=== PATIENT | male | born 1965 | race Caucasian/White ===

== ENCOUNTER 2019-12-11 16:20 | Inpatient (IN) | payer OTHER ==
[~2019-12-11] VITALS: Ht 167.6 cm; Wt 75.8 kg
[2019-12-11 18:30] LABS: HEMATOCRIT. 36.2 % (42.0-52.0); HEMOGLOBIN. 12.3 g/dL (14.0-18.0); MEAN CORPUSCULAR HEMOGLOBIN 33.4 pg (28.0-32.0); MEAN CORPUSCULAR VOLUME 98.5 fL (80.0-94.0); PLATELET 110 x1000/uL (130-400); RED BLOOD CELL COUNT 3.67 mill/uL (4.7-6.1); RED CELL DISTRIBUTION WIDTH 15.5 % (11.6-14.6)
[2019-12-11 18:42] LABS: CHLORIDE 95 mEq/L (98-107)
[2019-12-11 19:13] LABS: PLATELET ESTIMATE DECREASED
[2019-12-11] MEDS ORDERED: SODIUM POLYSTYRENE SULFONATE 15 G/60 ML BOT PO ONE (19:15)
[2019-12-11] MEDS ORDERED: DEXTROSE 50% WATER 50ML SYRINGE IV ONE ×4 (19:15→22:45)
[2019-12-11] MEDS ORDERED: INSULIN REGULAR (HUMULIN R) 300UNITS/3ML IV ONE (19:15)
[2019-12-11] MEDS ORDERED: DIPHENHYDRAMINE 50MG/ML VIAL IV PRN (21:45)
[2019-12-11] MEDS ORDERED: CLONIDINE 0.1MG TABLET PO PRN (21:45)
[2019-12-11] MEDS ORDERED: DOCUSATE SODIUM 100MG CAPSULE PO PRN (21:45)
[2019-12-11] MEDS ORDERED: AZITHROMYCIN 500 MG in DEXT 5% WATER 250 ML IV NR (22:00)
[2019-12-12 05:20] LABS: HEMATOCRIT. 34.7 % (42.0-52.0); HEMOGLOBIN. 11.7 g/dL (14.0-18.0); MEAN CORPUSCULAR HEMOGLOBIN 33.3 pg (28.0-32.0); MEAN CORPUSCULAR VOLUME 98.6 fL (80.0-94.0); MEAN PLATELET VOLUME 10.8 fl (7.4-10.4); PLATELET 84 x1000/uL (130-400); RED BLOOD CELL COUNT 3.52 mill/uL (4.7-6.1); RED CELL DISTRIBUTION WIDTH 15.8 % (11.6-14.6)
[2019-12-12 05:22] LABS: CHLORIDE 96 mEq/L (98-107)
[2019-12-12 05:49] LABS: PLATELET ESTIMATE NORMAL
[2019-12-12] MEDS: ACETAMINOPHEN 325MG TABLET PO PRN (06:09)
[2019-12-12] MEDS: ONDANSETRON HCL 4MG/2ML INJ IV PRN ×2 (06:29→21:33)
[2019-12-12 10:45] VITALS: BP 108/62
[2019-12-12 11:00] VITALS: BP 108/62
[2019-12-12] MEDS ORDERED: DEXTROSE 50% WATER 50ML SYRINGE IV PRN (11:15)
[2019-12-12 12:00] VITALS: BP 114/72
[2019-12-12] MEDS: BLOOD SUGAR DIAGNOSTIC STRIP TEST SCH ×3 (12:07→21:00)
[2019-12-12] MEDS: AZITHROMYCIN 500 MG in DEXT 5% WATER 250 ML IV SCH ×2 (12:09→12:33)
[2019-12-12] MEDS: INSULIN LISPRO 100 UNITS/ML SUBCUT SCH ×3 (12:10→21:00)
[2019-12-12] MEDS ORDERED: VANCOMYCIN 2,000 MG in DEXT 5% WATER 500 ML IV NR (13:00)
[2019-12-12 16:00] VITALS: BP 114/72
[2019-12-12 20:00] VITALS: BP 132/78
[2019-12-12] MEDS: PIPERACILLIN/TAZOBACTAM 2.25 G in DEXTROSE 5% WATER 50 ML IV SCH (21:35)
[2019-12-12] MEDS ORDERED: PIPERACILLIN/TAZOBACTAM 3.375 G/VIAL IV SCH (22:00)
[2019-12-13] VITALS: BP 154/61
[2019-12-13] MEDS: MAGNESIUM/ALUMINUM HYDROXIDE/SIMETHICONE 30ML UDC PO PRN ×2 (00:15→23:01)
[2019-12-13] MEDS: HYDROCODONE/ACETAMINOPHEN 5/325MG TABLET PO PRN ×2 (02:11→08:50)
[2019-12-13] MEDS: LINEZOLID 600 MG PREMIX 300 ML IV SCH ×2 (02:23→14:34)
[2019-12-13 04:00] VITALS: BP 104/70
[2019-12-13] MEDS: PIPERACILLIN/TAZOBACTAM 2.25 G in DEXTROSE 5% WATER 50 ML IV SCH ×2 (06:17→17:02)
[2019-12-13] MEDS: BLOOD SUGAR DIAGNOSTIC STRIP TEST SCH ×4 (07:20→20:03)
[2019-12-13] MEDS: INSULIN LISPRO 100 UNITS/ML SUBCUT SCH ×4 (07:50→20:02)
[2019-12-13] MEDS ORDERED: AZITHROMYCIN 250 MG in DEXT 5% WATER 250 ML IV SCH (09:00)
[2019-12-13] MEDS ORDERED: CALCIUM CARBONATE 500MG TABLET CHEW PO PRN (09:45)
[2019-12-13 10:10] LABS: HEMATOCRIT. 31.6 % (42.0-52.0); HEMOGLOBIN. 10.7 g/dL (14.0-18.0); MEAN CORPUSCULAR HEMOGLOBIN 33.2 pg (28.0-32.0); MEAN CORPUSCULAR VOLUME 97.8 fL (80.0-94.0); MEAN PLATELET VOLUME 11.7 fl (7.4-10.4); PLATELET 73 x1000/uL (130-400); RED BLOOD CELL COUNT 3.23 mill/uL (4.7-6.1); RED CELL DISTRIBUTION WIDTH 15.9 % (11.6-14.6)
[2019-12-13 10:28] LABS: BG BASE EXCESS -1.8 mmol/L (-2.0-2.0); BG CARBOXYHEMOGLOBIN 0.6 % (0.5-1.5); BG DEOXYHEMOGLOBIN 4.4 % (0.0-5.0); BG FRACTION INSPIRED OXYGEN 21; BG HCO3 ACT 23.1 mmol/L (22.0-26.0); BG METHEMOGLOBIN 0.3 % (0.0-1.5); BG OXYGEN SATURATION 95.6 % (92.0-98.5); BG OXYHEMOGLOBIN 94.7 % (94.0-97.0); BG PCO2 39.8 mmHg (35.0-45.0); BG PH 7.381 (7.350-7.450); BG PO2 86.4 mmHg (75.0-100.0); BG SAMPLE SITE LEFT RADIAL; BG TOTAL HEMOGLOBIN 10.4 g/dL (12.0-18.0); BG VENT MODE ROOM AIR
[2019-12-13 11:49] LABS: PLATELET ESTIMATE DECREASED
[2019-12-13 12:00] VITALS: BP 97/64
[2019-12-13 16:00] VITALS: BP 112/65
[2019-12-13 20:13] VITALS: BP 111/71
[2019-12-13 23:58] VITALS: BP 124/76
[2019-12-14] MEDS: ACETAMINOPHEN 325MG TABLET PO PRN (03:46)
[2019-12-14] MEDS: BLOOD SUGAR DIAGNOSTIC STRIP TEST SCH ×4 (06:51→21:33)
[2019-12-14] MEDS: INSULIN LISPRO 100 UNITS/ML SUBCUT SCH ×4 (06:51→20:59)
[2019-12-14 08:00] VITALS: BP 104/59
[2019-12-14 12:00] VITALS: BP 110/68
[2019-12-14] MEDS ORDERED: VANCOMYCIN 1 G PREMIX 200 ML IV NR (12:00)
[2019-12-14 13:52] LABS: HEMATOCRIT. 29.6 % (42.0-52.0); HEMOGLOBIN. 10.1 g/dL (14.0-18.0); MEAN CORPUSCULAR HEMOGLOBIN 33.1 pg (28.0-32.0); MEAN CORPUSCULAR VOLUME 97.5 fL (80.0-94.0); MEAN PLATELET VOLUME 11.3 fl (7.4-10.4); PLATELET 74 x1000/uL (130-400); RED BLOOD CELL COUNT 3.04 mill/uL (4.7-6.1); RED CELL DISTRIBUTION WIDTH 15.7 % (11.6-14.6)
[2019-12-14 13:58] LABS: CHLORIDE 101 mEq/L (98-107)
[2019-12-14 14:35] LABS: NUCLEATED RED BLOOD CELLS 1 /100 WBC
[2019-12-14 14:36] LABS: PLATELET ESTIMATE DECREASED
[2019-12-14] MEDS ORDERED: IPRATROPIUM/ALBUTEROL 0.5-3(2.5)MG/3ML NEB HHN PRN (15:15)
[2019-12-14 16:00] VITALS: BP 115/72
[2019-12-14] MEDS: CEFAZOLIN 2,000 MG in DEXT 5% WATER 100 ML IV SCH (18:36)
[2019-12-14 20:00] VITALS: BP 150/92
[2019-12-14] MEDS ORDERED: ENOXAPARIN 30MG/0.3ML SYR SUBCUT SCH (21:00)
[2019-12-14 22:38] VITALS: BP 150/92
[2019-12-15] VITALS: BP 139/77
[2019-12-15 04:00] VITALS: BP 134/72
[2019-12-15] MEDS: BLOOD SUGAR DIAGNOSTIC STRIP TEST SCH ×5 (05:50→20:51)
[2019-12-15 07:44] VITALS: BP 140/84
[2019-12-15] MEDS: INSULIN LISPRO 100 UNITS/ML SUBCUT SCH ×4 (07:50→20:52)
[2019-12-15] MEDS ORDERED: ENOXAPARIN 30MG/0.3ML SYR SUBCUT SCH (09:00)
[2019-12-15 11:44] VITALS: BP 128/78
[2019-12-15 15:40] VITALS: BP 127/78
[2019-12-15] MEDS: CEFAZOLIN 2,000 MG in DEXT 5% WATER 100 ML IV SCH (16:13)
[2019-12-15] MEDS ORDERED: SIMETHICONE 80MG TABLET CHEW PO PRN (19:45)
[2019-12-15] MEDS ORDERED: LACTULOSE 20G/30ML UDC PO PRN (21:15)
[2019-12-16] MEDS ORDERED: DOCUSATE SODIUM 100MG CAPSULE PO SCH (09:00)
== END 2019-12-15 22:30 | disposition left against medical advice (07) | DRG 720 ==
LOC: ER 16:20 → EDBD 20:44 → 7EST 20:44 → EDBEDREQSVC 20:46 → EDBEDREQTM 20:46 → EDBEDREQ 20:46 → EDBEDREQTM 12-12 01:25 → EDBEDREQSVC 12-12 01:25 → EDBEDREQDT 12-12 01:25 → EDBEDREQ 12-12 07:57 → ENRESERV 12-12 08:15 → 6WST 12-12 23:44
PROVIDERS: ADMIT Hospitalist; ATTEND Hospitalist
PROC: 5A1D70Z Performance of Urinary Filtration, Intermittent, Less than 6 Hours Per Day (ICD-10-PCS; principal; 2019-12-10)
PROC: 5A1D70Z Performance of Urinary Filtration, Intermittent, Less than 6 Hours Per Day (ICD-10-PCS; 2019-12-11)
PROC: 5A1D70Z Performance of Urinary Filtration, Intermittent, Less than 6 Hours Per Day (ICD-10-PCS; 2019-12-12)
PROC: 5A1D70Z Performance of Urinary Filtration, Intermittent, Less than 6 Hours Per Day (ICD-10-PCS; 2019-12-15)
DX: A41.01 Sepsis due to Methicillin susceptible Staphylococcus aureus (principal); J96.00 Acute respiratory failure, unspecified whether with hypoxia or hypercapnia; E43 Unspecified severe protein-calorie malnutrition; I13.2 Hypertensive heart and chronic kidney disease with heart failure and with stage 5 chronic kidney disease, or end stage renal disease; D61.818 Other pancytopenia; E11.22 Type 2 diabetes mellitus with diabetic chronic kidney disease; N18.6 End stage renal disease; E87.1 Hypo-osmolality and hyponatremia; I50.33 Acute on chronic diastolic (congestive) heart failure; B96.89 Other specified bacterial agents as the cause of diseases classified elsewhere; E87.5 Hyperkalemia; K59.00 Constipation, unspecified; R74.0 Nonspecific elevation of levels of transaminase and lactic acid dehydrogenase [LDH]; D64.9 Anemia, unspecified; Z53.29 Procedure and treatment not carried out because of patient's decision for other reasons; Z99.2 Dependence on renal dialysis; Z79.899 Other long term (current) drug therapy; Z68.27 Body mass index [BMI] 27.0-27.9, adult; Z03.818 Encounter for observation for suspected exposure to other biological agents ruled out
CPT/HCPCS: 36415; 36600; 71045; 73200; 80048; 80053; 80202; 82375; 82805; 82962; 83036; 83605; 84484; 85025; 87635; 93005; 99291; J0456; J0690; J1200; J1815; J2020; J2405; J2543; J3370; J7060; U0002

== ENCOUNTER 2020-01-03 20:34 | Inpatient (IN) | payer MEDICAID ==
[~2020-01-03] VITALS: Ht 180.3 cm; Wt 90.3 kg
[2020-01-03 23:00] LABS: HEMATOCRIT. 30.2 % (42.0-52.0); HEMOGLOBIN. 10.2 g/dL (14.0-18.0); MEAN CORPUSCULAR HEMOGLOBIN 33.2 pg (28.0-32.0); MEAN CORPUSCULAR VOLUME 97.9 fL (80.0-94.0); MEAN PLATELET VOLUME 9.2 fl (7.4-10.4); PLATELET 177 x1000/uL (130-400); RED BLOOD CELL COUNT 3.08 mill/uL (4.7-6.1); RED CELL DISTRIBUTION WIDTH 16.4 % (11.6-14.6)
[2020-01-03 23:05] LABS: CHLORIDE 99 mEq/L (98-107)
[2020-01-03 23:16] LABS: PLATELET ESTIMATE NORMAL
[2020-01-03] MEDS ORDERED: DEXTROSE 50% WATER 50ML SYRINGE IV ONE (23:30)
[2020-01-03] MEDS ORDERED: SODIUM POLYSTYRENE SULFONATE 15 G/60 ML BOT PO ONE (23:30)
[2020-01-03] MEDS ORDERED: INSULIN REGULAR (HUMULIN R) 300UNITS/3ML IV ONE (23:30)
[2020-01-03] MEDS ORDERED: ALBUTEROL (0.083%) 2.5MG/3ML NEB HHN ONE (23:30)
[2020-01-03] MEDS ORDERED: CALCIUM GLUCONATE 100MG/ML 10ML VIAL IV ONE (23:30)
[2020-01-03] MEDS ORDERED: SODIUM BICARBONATE 8.4% 1 MEQ/ML 50ML SYR IV ONE (23:30)
[2020-01-03] MEDS ORDERED: HEPARIN 25,000 UNITS PREMIX 500 ML IV STA (23:37)
[2020-01-03] MEDS ORDERED: HEPARIN 5000 UNITS/ML VIAL IV ONE (23:45)
[2020-01-04 00:17] LABS: PARTIAL THROMBOPLASTIN TIME 31.9 sec (23.4-31.0); PROTHROMBIN TIME 11.3 sec (9.6-11.0)
[2020-01-04] MEDS ORDERED: HEPARIN BOLUS PRN aPTT <36 IV ×2 (00:30→01:09)
[2020-01-04] MEDS ORDERED: HEPARIN BOLUS PRN aPTT 37-44 IV ×2 (00:30→01:09)
[2020-01-04] MEDS: HEPARIN 25,000 UNITS PREMIX 500 ML IV SCH ×2 (00:40→18:39)
[2020-01-04 05:08] VITALS: BP 160/80
[2020-01-04] MEDS ORDERED: HEPARIN 25,000 UNITS PREMIX 500 ML IV SCH (06:00)
[2020-01-04 08:00] VITALS: BP 168/101
[2020-01-04 08:35] LABS: BASOPHILS % 3.4 % (0.0-2.0); EOSINOPHILS % 5.6 % (0.0-5.0); HEMATOCRIT. 26.4 % (42.0-52.0); HEMOGLOBIN. 8.9 g/dL (14.0-18.0); LYMPHOCYTES % 12.8 % (20.0-50.0); MEAN CORPUSCULAR HEMOGLOBIN 32.9 pg (28.0-32.0); MEAN CORPUSCULAR VOLUME 97.4 fL (80.0-94.0); MEAN PLATELET VOLUME 9.1 fl (7.4-10.4); MONOCYTES % 11.1 % (2.0-8.0); NEUTROPHILS % 67.1 % (40.0-76.0); PLATELET 157 x1000/uL (130-400); RED BLOOD CELL COUNT 2.71 mill/uL (4.7-6.1); RED CELL DISTRIBUTION WIDTH 16.2 % (11.6-14.6)
[2020-01-04] MEDS ORDERED: IPRATROPIUM/ALBUTEROL 0.5-3(2.5)MG/3ML NEB HHN PRN (09:30)
[2020-01-04] MEDS ORDERED: DIPHENHYDRAMINE 50MG/ML VIAL IV PRN (09:30)
[2020-01-04 09:59] LABS: PHOSPHORUS 5.3 mg/dL (2.5-4.9)
[2020-01-04] MEDS: CLONIDINE 0.1MG TABLET PO PRN ×2 (11:53→18:36)
[2020-01-04 12:00] VITALS: BP 171/109
[2020-01-04 16:00] VITALS: BP 166/102
[2020-01-04 16:15] LABS: CREATINE KINASE 77 IU/L (39-308)
[2020-01-04] MEDS: AMLODIPINE 5MG TABLET PO SCH (21:30)
[2020-01-05] MEDS: ACETAMINOPHEN 325MG TABLET PO PRN ×4 (00:05→21:13)
[2020-01-05 04:38] LABS: BASOPHILS % 3.8 % (0.0-2.0); EOSINOPHILS % 11.3 % (0.0-5.0); HEMATOCRIT. 29.8 % (42.0-52.0); HEMOGLOBIN. 10.2 g/dL (14.0-18.0); LYMPHOCYTES % 15.8 % (20.0-50.0); MEAN CORPUSCULAR HEMOGLOBIN 33.3 pg (28.0-32.0); MEAN CORPUSCULAR VOLUME 97.3 fL (80.0-94.0); MEAN PLATELET VOLUME 9.5 fl (7.4-10.4); MONOCYTES % 9.6 % (2.0-8.0); NEUTROPHILS % 59.5 % (40.0-76.0); PLATELET 168 x1000/uL (130-400); RED BLOOD CELL COUNT 3.06 mill/uL (4.7-6.1); RED CELL DISTRIBUTION WIDTH 16.1 % (11.6-14.6)
[2020-01-05 04:41] LABS: CHLORIDE 101 mEq/L (98-107)
[2020-01-05 04:48] LABS: LDL CHOLESTEROL 51 mg/dL (5-100)
[2020-01-05 04:50] LABS: HDL CHOLESTEROL 39 mg/dL (40-59)
[2020-01-05 08:00] VITALS: BP 180/105
[2020-01-05 08:17] VITALS: BP 135/70
[2020-01-05] MEDS: AMLODIPINE 5MG TABLET PO SCH ×2 (08:31→21:00)
[2020-01-05] MEDS: CLONIDINE 0.1MG TABLET PO PRN (08:31)
[2020-01-05 12:00] VITALS: BP 147/94
[2020-01-05] MEDS: FOLIC ACID 1MG TABLET PO SCH (14:19)
[2020-01-05 16:00] VITALS: BP 147/95
[2020-01-05 20:00] VITALS: BP_SYST 123; BP_SYST 146; BP_DIAS 65; BP_DIAS 89
[2020-01-06] VITALS: BP 161/99
[2020-01-06 08:30] VITALS: BP 161/97
[2020-01-06] MEDS: CLONIDINE 0.1MG TABLET PO PRN ×2 (09:16→17:32)
[2020-01-06] MEDS: FOLIC ACID 1MG TABLET PO SCH (09:16)
[2020-01-06] MEDS: AMLODIPINE 5MG TABLET PO SCH ×2 (09:16→20:44)
[2020-01-06 12:00] VITALS: BP 119/76
[2020-01-06 16:00] VITALS: BP 161/100
[2020-01-06 20:00] VITALS: BP 163/108
[2020-01-07] VITALS (20 sets, daily range): BP systolic 145–179; BP diastolic 82–113
[2020-01-07 06:24] LABS: PARTIAL THROMBOPLASTIN TIME 32.2 sec (23.4-31.0); PROTHROMBIN TIME 11.2 sec (9.6-11.0)
[2020-01-07 06:26] LABS: BASOPHILS % 2.9 % (0.0-2.0); EOSINOPHILS % 10.5 % (0.0-5.0); HEMATOCRIT. 26.2 % (42.0-52.0); HEMOGLOBIN. 8.9 g/dL (14.0-18.0); LYMPHOCYTES % 15.4 % (20.0-50.0); MEAN CORPUSCULAR HEMOGLOBIN 32.9 pg (28.0-32.0); MEAN CORPUSCULAR VOLUME 97.1 fL (80.0-94.0); MEAN PLATELET VOLUME 9.4 fl (7.4-10.4); MONOCYTES % 10.4 % (2.0-8.0); NEUTROPHILS % 60.8 % (40.0-76.0); PLATELET 142 x1000/uL (130-400); RED CELL DISTRIBUTION WIDTH 15.9 % (11.6-14.6)
[2020-01-07] MEDS ORDERED: IOHEXOL-300 100 ML BOTTLE ONE (07:57)
[2020-01-07] MEDS ORDERED: SODIUM BICARBONATE 4% (2.4MEQ) 5ML VIAL IV ONE (07:57)
[2020-01-07] MEDS ORDERED: FENTANYL CITRATE/PF 50MCG/ML 2ML VIAL ONE (07:57)
[2020-01-07] MEDS ORDERED: LIDOCAINE HCL 1% 20ML VIAL (Pyxis) INJ ONE ×2 (07:58→08:04)
[2020-01-07] MEDS ORDERED: FENTANYL CITRATE/PF 50MCG/ML 2ML VIAL IV NR (09:30)
[2020-01-07] MEDS: FOLIC ACID 1MG TABLET PO SCH (10:26)
[2020-01-07] MEDS: AMLODIPINE 5MG TABLET PO SCH ×2 (10:26→21:31)
[2020-01-07] MEDS: HYDROCODONE/ACETAMINOPHEN 5/325MG TABLET PO PRN (15:07)
[2020-01-08] VITALS: BP 153/93
[2020-01-08] MEDS: HYDROCODONE/ACETAMINOPHEN 5/325MG TABLET PO PRN (00:46)
[2020-01-08] MEDS: ACETAMINOPHEN 325MG TABLET PO PRN (02:04)
[2020-01-08] MEDS ORDERED: MORPHINE SULFATE 2 MG/ML CPJ (NOT FOR IM USE) IV PRN (05:30)
[2020-01-08 06:40] LABS: BASOPHILS % 3.5 % (0.0-2.0); EOSINOPHILS % 10.2 % (0.0-5.0); HEMATOCRIT. 26.8 % (42.0-52.0); HEMOGLOBIN. 9.3 g/dL (14.0-18.0); LYMPHOCYTES % 16.4 % (20.0-50.0); MEAN CORPUSCULAR HEMOGLOBIN 33.1 pg (28.0-32.0); MEAN CORPUSCULAR VOLUME 95.5 fL (80.0-94.0); MEAN PLATELET VOLUME 9.5 fl (7.4-10.4); NEUTROPHILS % 58.9 % (40.0-76.0); PLATELET 156 x1000/uL (130-400); RED CELL DISTRIBUTION WIDTH 15.8 % (11.6-14.6)
[2020-01-08 08:00] VITALS: BP 162/102
[2020-01-08] MEDS: AMLODIPINE 5MG TABLET PO SCH ×2 (08:32→20:11)
[2020-01-08] MEDS: FOLIC ACID 1MG TABLET PO SCH (08:32)
[2020-01-08] MEDS ORDERED: HEPARIN SODIUM 1,000 UNIT/1ML VIAL IV ONE ×2 (09:36→11:02)
[2020-01-08] MEDS ORDERED: THROMBIN (BOVINE) 5000 UNITS/VIAL TOP ONE (09:36)
[2020-01-08] MEDS ORDERED: BACITRACIN 15GM TUBE TOP ONE (09:36)
[2020-01-08] MEDS ORDERED: LIDOCAINE HCL 1% 20ML VIAL (Pyxis) INJ ONE (09:36)
[2020-01-08] MEDS ORDERED: BUPIVACAINE HCL/PF 0.5% (5MG/ML) 10ML ONE (09:37)
[2020-01-08] MEDS ORDERED: BACITRACIN 50,000 UNITS/VIAL ONE (09:37)
[2020-01-08] MEDS ORDERED: NORMAL SALINE 0.9% 10 ML SYR ONE (09:37)
[2020-01-08] MEDS ORDERED: PAPAVERINE HCL 30 MG/ML 2ML IV ONE (09:37)
[2020-01-08] MEDS ORDERED: FENTANYL CITRATE/PF 50MCG/ML 2ML VIAL ONE ×2 (09:43→10:56)
[2020-01-08] MEDS ORDERED: LIDOCAINE HCL/PF 1% 10 MG/ML 5ML VIAL ONE (09:43)
[2020-01-08] MEDS ORDERED: PROPOFOL 200MG/20ML VIAL IV ONE (09:43)
[2020-01-08] MEDS ORDERED: PHENYLEPHRINE HCL 10 MG/ML 1ML (IV VIAL) IV ONE (10:01)
[2020-01-08] MEDS ORDERED: GLYCOPYRROLATE 0.2 MG/ML 2ML VIAL ONE (10:23)
[2020-01-08] MEDS ORDERED: HEPARIN 5000 UNITS/ML VIAL ONE (11:00)
[2020-01-08] MEDS ORDERED: PROTAMINE SULFATE 10MG/ML VIAL 5ML IV ONE (11:58)
[2020-01-08] MEDS ORDERED: CEFAZOLIN SODIUM 1000MG/VIAL ONE (11:58)
[2020-01-08] MEDS ORDERED: HEPARIN 1000 UNITS/ML 10ML ONE (11:59)
[2020-01-08] MEDS ORDERED: HYDROMORPHONE HCL/PF 2MG/ML CPJ IV PRN (12:30)
[2020-01-08] MEDS ORDERED: ONDANSETRON HCL 4MG/2ML INJ IV PRN (12:30)
[2020-01-08] MEDS: FENTANYL CITRATE/PF 50MCG/ML 2ML VIAL IV PRN ×2 (12:33→13:14)
[2020-01-08] MEDS: ONDANSETRON HCL 4MG/2ML INJ IV PRN (12:50)
[2020-01-08] MEDS: MORPHINE SULFATE 2 MG/ML CPJ (NOT FOR IM USE) IV PRN ×4 (12:53→23:28)
[2020-01-08 19:35] VITALS: BP 145/92
[2020-01-08 21:39] VITALS: BP 147/93
[2020-01-09 00:30] VITALS: BP 150/90
[2020-01-09 01:42] LABS: HEMATOCRIT 29.7 % (42.0-52.0); HEMOGLOBIN 10.3 g/dL (14.0-18.0); MEAN CORPUSCULAR HEMOGLOBIN 33.1 pg (28.0-32.0); MEAN CORPUSCULAR VOLUME 95.7 fL (80.0-94.0); PLATELET 204 x1000/uL (130-400); RED BLOOD CELL COUNT 3.11 mill/uL (4.7-6.1); RED CELL DISTRIBUTION WIDTH 15.6 % (11.6-14.6)
[2020-01-09] MEDS: MORPHINE SULFATE 2 MG/ML CPJ (NOT FOR IM USE) IV PRN ×5 (03:54→21:50)
[2020-01-09 06:48] LABS: BASOPHILS % 1.2 % (0.0-2.0); EOSINOPHILS % 3.8 % (0.0-5.0); HEMATOCRIT. 25.3 % (42.0-52.0); HEMOGLOBIN. 8.7 g/dL (14.0-18.0); LYMPHOCYTES % 7.8 % (20.0-50.0); MEAN PLATELET VOLUME 9.4 fl (7.4-10.4); MONOCYTES % 9.8 % (2.0-8.0); NEUTROPHILS % 77.4 % (40.0-76.0); PLATELET 185 x1000/uL (130-400); RED BLOOD CELL COUNT 2.64 mill/uL (4.7-6.1)
[2020-01-09 08:30] VITALS: BP 155/86
[2020-01-09] MEDS: AMLODIPINE 5MG TABLET PO SCH ×2 (10:05→21:50)
[2020-01-09] MEDS: FOLIC ACID 1MG TABLET PO SCH (10:05)
[2020-01-09] MEDS: ONDANSETRON HCL 4MG/2ML INJ IV PRN (10:16)
[2020-01-09 12:00] VITALS: BP 155/86
[2020-01-09 16:00] VITALS: BP 151/90
[2020-01-09 18:01] VITALS: BP 151/90
[2020-01-09 20:53] VITALS: BP 153/87
[2020-01-09] MEDS ORDERED: LACTULOSE 20G/30ML UDC PO NR (22:00)
[2020-01-09] MEDS ORDERED: SODIUM POLYSTYRENE SULFONATE 15 G/60 ML BOT PO NR (23:00)
[2020-01-10 04:30] VITALS: BP 137/83
[2020-01-10 07:28] LABS: HEMATOCRIT. 24.9 % (42.0-52.0); HEMOGLOBIN. 8.4 g/dL (14.0-18.0); MEAN CORPUSCULAR HEMOGLOBIN 32.5 pg (28.0-32.0); MEAN CORPUSCULAR VOLUME 96.6 fL (80.0-94.0); RED BLOOD CELL COUNT 2.58 mill/uL (4.7-6.1); RED CELL DISTRIBUTION WIDTH 15.9 % (11.6-14.6)
[2020-01-10 08:00] VITALS: BP 146/89
[2020-01-10] MEDS: FOLIC ACID 1MG TABLET PO SCH (09:58)
[2020-01-10] MEDS: AMLODIPINE 5MG TABLET PO SCH ×2 (09:59→22:52)
[2020-01-10] MEDS ORDERED: CALCIUM CHLORIDE 1GM/10ML SYR IV ONE ×2 (10:30→11:56)
[2020-01-10 10:44] LABS: PLATELET ESTIMATE NORMAL
[2020-01-10 10:45] LABS: MEAN PLATELET VOLUME 9.9 fl (7.4-10.4)
[2020-01-10 10:46] LABS: PLATELET 186 x1000/uL (130-400)
[2020-01-10] MEDS ORDERED: DESMOPRESSIN ACETATE IVPB 21 MCG in SODIUM CHLORIDE 0.9% 50 ML IV SCH (11:00)
[2020-01-10 12:00] VITALS: BP 138/84
[2020-01-10 16:00] VITALS: BP 125/80
[2020-01-10] MEDS: ACETAMINOPHEN 325MG TABLET PO PRN (19:08)
[2020-01-10 20:00] VITALS: BP 139/87
[2020-01-11] VITALS: BP 137/80
[2020-01-11 04:00] VITALS: BP 143/88
[2020-01-11 08:00] VITALS: BP 155/93
[2020-01-11] MEDS ORDERED: LIDOCAINE HCL 1% 20ML VIAL (Pyxis) INJ ONE (08:13)
[2020-01-11] MEDS: AMLODIPINE 5MG TABLET PO SCH ×2 (09:00→21:31)
[2020-01-11 12:00] VITALS: BP 154/59
[2020-01-11 16:00] VITALS: BP 128/84
[2020-01-11 17:56] LABS: BASOPHILS % 2.4 % (0.0-2.0); HEMATOCRIT. 21.1 % (42.0-52.0); HEMOGLOBIN. 7.2 g/dL (14.0-18.0); MEAN CORPUSCULAR HEMOGLOBIN 32.6 pg (28.0-32.0); MEAN CORPUSCULAR VOLUME 95.3 fL (80.0-94.0); MEAN PLATELET VOLUME 9.9 fl (7.4-10.4); MONOCYTES % 7.7 % (2.0-8.0); NEUTROPHILS % 74.9 % (40.0-76.0); PLATELET 197 x1000/uL (130-400); RED BLOOD CELL COUNT 2.21 mill/uL (4.7-6.1); RED CELL DISTRIBUTION WIDTH 15.6 % (11.6-14.6)
[2020-01-11] MEDS: FOLIC ACID 1MG TABLET PO SCH (18:12)
[2020-01-11 20:00] VITALS: BP 135/75
[2020-01-11] MEDS ORDERED: EPOETIN ALFA 4000UNITS/ML VIAL SUBCUT NR (21:00)
[2020-01-12 04:00] VITALS: BP_SYST 123; BP_SYST 141; BP_DIAS 79; BP_DIAS 85
[2020-01-12 07:33] LABS: BASOPHILS % 2.7 % (0.0-2.0); EOSINOPHILS % 6.8 % (0.0-5.0); LYMPHOCYTES % 13.7 % (20.0-50.0); MEAN CORPUSCULAR HEMOGLOBIN 32.4 pg (28.0-32.0); MEAN CORPUSCULAR VOLUME 95.7 fL (80.0-94.0); MEAN PLATELET VOLUME 9.8 fl (7.4-10.4); MONOCYTES % 9.4 % (2.0-8.0); NEUTROPHILS % 67.4 % (40.0-76.0); PLATELET 196 x1000/uL (130-400); RED BLOOD CELL COUNT 2.07 mill/uL (4.7-6.1); RED CELL DISTRIBUTION WIDTH 15.8 % (11.6-14.6)
[2020-01-12 07:51] LABS: HEMATOCRIT. 19.8 % (42.0-52.0); HEMOGLOBIN. 6.7 g/dL (14.0-18.0)
[2020-01-12 08:00] VITALS: BP 140/87
[2020-01-12] MEDS: AMLODIPINE 5MG TABLET PO SCH (08:04)
[2020-01-12] MEDS: FOLIC ACID 1MG TABLET PO SCH (08:04)
[2020-01-12 12:00] VITALS: BP 133/80
[2020-01-12] MEDS ORDERED: FOLI-43 PO (12:55)
[2020-01-12] MEDS ORDERED: AMLO5TAB88 PO (12:55)
[2020-01-12 16:00] VITALS: BP 136/82
== END 2020-01-12 19:00 | disposition left against medical advice (07) | DRG 182 ==
LOC: ER 20:34 → 6WST 23:54 → ENRESERV 01-04 01:28
PROVIDERS: ADMIT Internal Medicine; ATTEND Internal Medicine
PROC: 5A1D70Z Performance of Urinary Filtration, Intermittent, Less than 6 Hours Per Day (ICD-10-PCS; 2020-01-04)
PROC: 03WY3JZ Revision of Synthetic Substitute in Upper Artery, Percutaneous Approach (ICD-10-PCS; principal; 2020-01-07)
PROC: 5A1D70Z Performance of Urinary Filtration, Intermittent, Less than 6 Hours Per Day (ICD-10-PCS; 2020-01-07)
PROC: 05WY3JZ Revision of Synthetic Substitute in Upper Vein, Percutaneous Approach (ICD-10-PCS; 2020-01-07)
PROC: B51W1ZZ Fluoroscopy of Dialysis Shunt/Fistula using Low Osmolar Contrast (ICD-10-PCS; 2020-01-07)
PROC: B5181ZZ Fluoroscopy of Superior Vena Cava using Low Osmolar Contrast (ICD-10-PCS; 2020-01-07)
PROC: 03WY0KZ Revision of Nonautologous Tissue Substitute in Upper Artery, Open Approach (ICD-10-PCS; 2020-01-08)
PROC: 5A1D70Z Performance of Urinary Filtration, Intermittent, Less than 6 Hours Per Day (ICD-10-PCS; 2020-01-09)
PROC: 5A1D70Z Performance of Urinary Filtration, Intermittent, Less than 6 Hours Per Day (ICD-10-PCS; 2020-01-11)
PROC: B548ZZA Ultrasonography of Superior Vena Cava, Guidance (ICD-10-PCS; 2020-01-11)
PROC: 02HV33Z Insertion of Infusion Device into Superior Vena Cava, Percutaneous Approach (ICD-10-PCS; 2020-01-11)
PROC: B5181ZA Fluoroscopy of Superior Vena Cava using Low Osmolar Contrast, Guidance (ICD-10-PCS; 2020-01-11)
PROC: 5A1D70Z Performance of Urinary Filtration, Intermittent, Less than 6 Hours Per Day (ICD-10-PCS; 2020-01-12)
DX: T82.898A Other specified complication of vascular prosthetic devices, implants and grafts, initial encounter (principal); I82.A11 Acute embolism and thrombosis of right axillary vein; E46 Unspecified protein-calorie malnutrition; I12.0 Hypertensive chronic kidney disease with stage 5 chronic kidney disease or end stage renal disease; E87.5 Hyperkalemia; N18.6 End stage renal disease; D53.9 Nutritional anemia, unspecified; E53.8 Deficiency of other specified B group vitamins; Z53.29 Procedure and treatment not carried out because of patient's decision for other reasons; E78.00 Pure hypercholesterolemia, unspecified; F17.210 Nicotine dependence, cigarettes, uncomplicated; Y83.2 Surgical operation with anastomosis, bypass or graft as the cause of abnormal reaction of the patient, or of later complication, without mention of misadventure at the time of the procedure; Z94.0 Kidney transplant status; Z99.2 Dependence on renal dialysis; Z68.27 Body mass index [BMI] 27.0-27.9, adult; Y92.89 Other specified places as the place of occurrence of the external cause; I97.620 Postprocedural hemorrhage of a circulatory system organ or structure following other procedure; Y83.8 Other surgical procedures as the cause of abnormal reaction of the patient, or of later complication, without mention of misadventure at the time of the procedure; Y92.230 Patient room in hospital as the place of occurrence of the external cause
CPT/HCPCS: 36415; 36902; 36907; 71045; 76937; 77001; 80048; 80053; 80061; 82550; 82553; 82607; 82746; 82962; 83735; 83880; 84100; 84443; 84484; 85025; 85027; 86850; 86900; 86920; 93005; 93970; 93971; 94644; 99152; 99153; 99285; C1725; C1752; C1766; C1768; C1769; C1884; C1887; J0610; J0690; J0885; J1644; J1815; J2270; J2370; J2405; J2440; J2597; J2704; J2720; J3010; J3490; Q9967; G0500

== ENCOUNTER 2024-05-08 10:27 | Emergency (ER) | payer MEDICAID, OTHER ==
[~2024-05-08] VITALS: Ht 170.2 cm; Wt 68.0 kg
[~2024-05-08 10:27] MED LIST: AMLO5TAB88 PO; FOLI-43 PO
[2024-05-08 10:29] VITALS: O2SAT 100
[2024-05-08 12:22] LABS: CHLORIDE 105 mEq/L (98-107); POTASSIUM 4.4 mEq/L (3.5-5.1); SODIUM 136 mEq/L (136-145)
[2024-05-08 12:23] LABS: HEMATOCRIT. 33.5 % (42.0-52.0); HEMOGLOBIN. 10.9 g/dL (14.0-18.0); INR 0.9; MEAN CORPUSCULAR HGB CONC 32.6 g/dL (31.0-37.0); MEAN CORPUSCULAR VOLUME 101.3 fL (80.0-94.0); MEAN PLATELET VOLUME 8.8 fl (7.4-10.4); PLATELET 181 x1000/uL (130-400); PROTHROMBIN TIME 10.3 sec (9.6-11.0); RED BLOOD CELL COUNT 3.31 mill/uL (4.7-6.1); RED CELL DISTRIBUTION WIDTH 14.4 % (11.6-14.6); WHITE BLOOD COUNT 8.3 x1000/uL (4.5-11.0)
[2024-05-08 12:24] LABS: CALCIUM 8.2 mg/dL (8.7-10.4); CARBON DIOXIDE 26 mEq/L (21-32)
[2024-05-08 12:29] LABS: GLUCOSE 105 mg/dL (70-105)
[2024-05-08 12:30] LABS: UREA NITROGEN BLOOD 48 mg/dL (9-23)
[2024-05-08] MEDS: MORPHINE SULFATE 4 MG/ML INJ (FOR IV/IM USE) IV ONE (12:30)
[2024-05-08 12:31] LABS: ALANINE AMINOTRANSFERASE 12 IU/L (10-49); ALBUMIN 2.7 g/dL (3.2-4.8); ASPARTATE AMINOTRANSFERASE 26 IU/L (<34); TROPONIN I HIGH SENSITIVITY 17 ng/L (3.0-53)
[2024-05-08 12:32] LABS: BILIRUBIN TOTAL 0.2 mg/dL (0.1-1.0); PROTEIN TOTAL 4.5 g/dL (6.0-8.3)
[2024-05-08 13:00] LABS: DIFFERENTIAL COMMENT 1
[2024-05-08 13:30] LABS: BILIRUBIN DIRECT < 0.1 mg/dL (<=3.0)
[2024-05-08 13:33] LABS: CREATININE 6.4 mg/dL (0.6-1.3)
[2024-05-08] MEDS ORDERED: CEFOXITIN SODIUM 2 G in DEXT 5% WATER 100 ML IV SCH (15:30)
[2024-05-08 15:57] LABS: PLATELET ESTIMATE NORMAL
[2024-05-08 17:10] VITALS: BP 137/87; PULSE 111; RESP 18; TEMP 36.55848; O2SAT 100
== END 2024-05-08 17:15 | disposition short-term general hospital (02) ==
LOC: ER 10:54 → CANBEDREQ 17:08 → ER 17:15
DX: R10.31 Right lower quadrant pain (principal); E78.00 Pure hypercholesterolemia, unspecified; I12.0 Hypertensive chronic kidney disease with stage 5 chronic kidney disease or end stage renal disease; E11.22 Type 2 diabetes mellitus with diabetic chronic kidney disease; N18.6 End stage renal disease; Z98.890 Other specified postprocedural states
CPT/HCPCS: 80076; 80048; 83690; 85025; 85610; 84484; 36415; 74176; 96374; 99285; J2270; Z7610

== ENCOUNTER 2024-10-16 23:10 | Emergency (ER) | payer OTHER ==
[2024-10-16 23:11] VITALS: PULSE 99; O2SAT 97
[2024-10-16] MEDS ORDERED: MAGNESIUM/ALUMINUM HYDROXIDE/SIMETHICONE 30ML UDC PO ONE (23:15)
[2024-10-16] MEDS ORDERED: ONDANSETRON HCL 4MG/2ML INJ IV STA (23:15)
[2024-10-16 23:47] LABS: HEMATOCRIT. 36.1 % (42.0-52.0); HEMOGLOBIN. 12.3 g/dL (14.0-18.0); MEAN CORPUSCULAR HEMOGLOBIN 34.3 pg (28.0-32.0); MEAN CORPUSCULAR HGB CONC 34.1 g/dL (31.0-37.0); MEAN CORPUSCULAR VOLUME 100.8 fL (80.0-94.0); MEAN PLATELET VOLUME 9.7 fl (7.4-10.4); PLATELET 193 x1000/uL (130-400); RED BLOOD CELL COUNT 3.58 mill/uL (4.7-6.1); RED CELL DISTRIBUTION WIDTH 14.2 % (11.6-14.6); WHITE BLOOD COUNT 6.2 x1000/uL (4.5-11.0)
[2024-10-16 23:54] LABS: CHLORIDE 105 mEq/L (98-107); POTASSIUM 4.5 mEq/L (3.5-5.1); SODIUM 140 mEq/L (136-145)
[2024-10-16 23:55] LABS: CALCIUM 8.5 mg/dL (8.7-10.4); CARBON DIOXIDE 29 mEq/L (21-32)
[2024-10-16 23:56] LABS: INR 0.9; PARTIAL THROMBOPLASTIN TIME 26.8 sec (23.4-31.0)
[2024-10-17] LABS: GLUCOSE 109 mg/dL (70-105); UREA NITROGEN BLOOD 51 mg/dL (9-23)
[2024-10-17 00:02] LABS: TROPONIN I HIGH SENSITIVITY 22 ng/L (3.0-53)
[2024-10-17 00:11] LABS: ETHANOL BLOOD < 10 mg/dL (<10)
[2024-10-17 00:42] LABS: DIFFERENTIAL COMMENT 1
[2024-10-17 02:32] LABS: PLATELET ESTIMATE NORMAL
== END 2024-10-17 00:37 | disposition left against medical advice (07) ==
LOC: ER 23:10
DX: R13.10 Dysphagia, unspecified (principal); I12.0 Hypertensive chronic kidney disease with stage 5 chronic kidney disease or end stage renal disease; N18.6 End stage renal disease; E78.00 Pure hypercholesterolemia, unspecified; Z99.2 Dependence on renal dialysis
CPT/HCPCS: 36415; 71045; 80048; 80320; 82962; 83880; 84484; 85025; 99284; G0480